=== PATIENT | female | born 1945 | race Caucasian/White ===

== ENCOUNTER 2022-02-19 08:12 | Outpatient (RCR) | payer MEDICARE, SELFPAY | END 2022-03-01 11:52 | disposition home or self-care (01) | LOC: HO.WCC 08:12 | PROVIDERS: PCP Family Medicine; Visit Provider Physician Assistant | DX: S81.802D Unspecified open wound, left lower leg, subsequent encounter (principal); S81.801D Unspecified open wound, right lower leg, subsequent encounter; E11.51 Type 2 diabetes mellitus with diabetic peripheral angiopathy without gangrene; E11.40 Type 2 diabetes mellitus with diabetic neuropathy, unspecified; I87.2 Venous insufficiency (chronic) (peripheral); R60.9 Edema, unspecified; I89.0 Lymphedema, not elsewhere classified; L20.9 Atopic dermatitis, unspecified; I48.91 Unspecified atrial fibrillation; I50.9 Heart failure, unspecified; Z79.84 Long term (current) use of oral hypoglycemic drugs | CPT/HCPCS: 99212; 99215 ==